=== PATIENT | male | born 1995 | race Caucasian/White ===

== ENCOUNTER 2023-11-03 02:13 | Emergency (ER) | payer MEDICAID, OTHER ==
[~2023-11-03] VITALS: Ht 170.2 cm; Wt 79.4 kg
[2023-11-03 05:40] VITALS: BP 138/80; TEMP 98.2; O2SAT 100
== END 2023-11-03 05:41 | disposition home or self-care (01) ==
LOC: ER 02:16
DX: R07.9 Chest pain, unspecified (principal); R00.2 Palpitations; Z60.2 Problems related to living alone
CPT/HCPCS: 71045-TC